=== PATIENT | male | born 1960 | race Caucasian/White ===

== ENCOUNTER 2019-04-16 12:51 | Day surgery (SDC) | payer BC, OTHER ==
[~2019-04-16] VITALS: Ht 167.6 cm; Wt 74.8 kg
[~2019-04-16 12:51] MED LIST: ASPI-481 PO; ATORVASTATIN; OMEP20CA16 PO
[2019-04-16] MEDS ORDERED: VITAMINS (15:40)
[2019-04-16 15:48] VITALS: BP 145/76; PULSE 59; RESP 18
[2019-04-16] MEDS ORDERED: LIDOCAINE 4% SOLUTION 50 ML BTL ONE (15:49)
[2019-04-16] MEDS ORDERED: FENTAnyl 50 MCG/ML VIAL ONE (15:49)
[2019-04-16] MEDS ORDERED: MIDAZOLAM 1 MG/ML 2 ML INJ ONE (15:49)
[2019-04-16] MEDS ORDERED: LIDOCAINE 2% (SDV) 5 ML INJ ONE (15:49)
[2019-04-16] MEDS ORDERED: ETOMIDATE 20 MG INJ ONE (15:49)
[2019-04-16] MEDS ORDERED: PROPOFOL 20 ML ONE (15:49)
--- NOTE | 2019-04-16 15:53 | PREAC ---
Date/Time of Note Date/Time of Note DATE: 04/16/19 TIME: 15:52 Anesthesia Eval and Record Evaluation Time Pre-Procedure Interview DATE: 04/16/19 TIME: 15:52 Age 58 Sex male NPO: 8 hrs Preoperative diagnosis barrets and colon polyps Planned procedure egd colonoscopy Past Medical History Past Medical History: Includes Cardio: Dyslipidemia GI: GERD Surgery & Anesthesia Issues No known issue Meds Anticoagulation: No Beta Cameron within 24 hr: No Reason Beta Cameron not given: Pt. not on B-Cameron Reported Medications [Vitamins] No Conflict Check 04/16/19 Omeprazole* (Omeprazole*) 20 Mg Capsule.dr, 40 MG PO DAILY 08/22/12 Discontinued Reported Medications [Atorvastatin] No Conflict Check 08/22/16 Aspirin (Baby Aspirin) 81 Mg Tab.chew, 81 MG PO DAILY 05/30/12 Meds reviewed: Yes Allergies Coded Allergies: No Known Allergy (Verified , 04/16/19) Allergies Reviewed: Yes Labs/Studies Labs Reviewed: Reviewed by anesthesiologist test: N/A Pre-procedure Exam Last vitals Vital Signs Date Temp Pulse Resp B/P (MAP) Pulse Ox O2 O2 Flow FiO2 Time Delivery Rate 04/16/19 97.7 59 18 145/76 92 Room Air 15:48 (99) Airway: Adequate mouth opening, Adequate thyromental dist Mallampati: Mallampati III Teeth: Normal Lung: Normal Heart: Normal ASA Physical Status ASA physical status: 2 Emergency: None Pre-operative Attestations Prior to commencing anesthesia and surgery, the patient was re-evaluated, there was verification of: *The patient's identity *The results of appropriate recent lab work and preoperative vital signs *The above evaluation not changing prior to induction *Anesthetic plan, risk benefits, alternative and complications discussed with patient/family; questions answered; patient/family understands, accepts and wishes to proceed. ERLIN ARANDA DO Apr 16, 2019 15:53
--- NOTE | 2019-04-16 16:42 | PAC ---
Date/Time of Note Date/Time of Note DATE: 04/16/19 TIME: 16:42 Post-Anesthesia Notes Post-Anesthesia Note Last documented vital signs Vital Signs Date Temp Pulse Resp B/P (MAP) Pulse Ox O2 O2 Flow FiO2 Time Delivery Rate 04/16/19 98 65 18 130/58 99 Room Air 15:48 Activity: WNL Respiratory function: WNL Cardiovascular function: WNL Mental status: Baseline Pain reasonably controlled: Yes Hydration appropriate: Yes Nausea/Vomiting absent: Yes ERLIN ARANDA DO Apr 16, 2019 16:42
[2019-04-16 16:55] VITALS: BP 116/72; RESP 20
== END 2019-04-16 17:43 | disposition home or self-care (01) ==
LOC: GIL 12:51
PROVIDERS: ATTEND Internal Medicine Gastroenterology
DX: Z12.11 Encounter for screening for malignant neoplasm of colon (principal); D12.8 Benign neoplasm of rectum; K64.8 Other hemorrhoids; K22.70 Barrett's esophagus without dysplasia; K21.0 Gastro-esophageal reflux disease with esophagitis; E78.5 Hyperlipidemia, unspecified
CPT/HCPCS: 43239; 45380; 88305; 88312; 88313; J2250; J3010